=== PATIENT | female | born 1995 | race Two or more races ===

== ENCOUNTER 2018-06-16 13:35 | Outpatient (CLI) | payer OTHER ==
[2018-06-16] MEDS ORDERED: ZOLOFT100 MG (15:47)
[2018-06-16] MEDS ORDERED: ASA81 MG (15:47)
== END 2018-06-16 13:47 | disposition home or self-care (01) ==
LOC: RAD 501 13:35
DX: S43.002A Unspecified subluxation of left shoulder joint, initial encounter (principal)

== ENCOUNTER 2018-06-16 15:07 | Emergency (ER) | payer OTHER ==
[~2018-06-16] VITALS: Ht 162.6 cm; Wt 49.0 kg
[2018-06-16] MEDS ORDERED: ASA81 MG (15:47)
[2018-06-16] MEDS ORDERED: ZOLOFT100 MG (15:47)
== END 2018-06-16 17:48 | disposition home or self-care (01) ==
LOC: ER 15:07
DX: S43.085A Other dislocation of left shoulder joint, initial encounter (principal); W18.39XA Other fall on same level, initial encounter; Y93.89 Activity, other specified; Y92.89 Other specified places as the place of occurrence of the external cause; Y99.8 Other external cause status